=== PATIENT | female | born 1945 | race Caucasian/White ===

== ENCOUNTER 2016-12-28 18:50 | Emergency (ER) | payer MEDICARE, OTHER ==
[2016-12-28] MEDS ORDERED: NS 0.9% 1000 ML* 1,000 ML IV ONE ×3 (19:57→21:01)
[2016-12-28] MEDS ORDERED: Ondansetron INJ* 2 MG/ML VIAL IV ONE ×2 (19:57→21:00)
--- NOTE | 2016-12-28 20:41 | ED ---
Abdominal Pain/Female - HPI Summary HPI Summary: Pt presents w/ nausea, vomiting, ab pain/cramping (intermittent) and lack of BM' /small BM's since Saturday. On Saturday, had acute N/V and 2 large, soft BM's. [place] "bad" in general- suspected she had a GI bug as other family members have had this over the past few weeks/month. Not sure if she had a fever. Ate chicken noodle soup today at noon w/o difficulty. H/o bowel obstruction with sigmoid resection. She then had a hernia w/ repair in Oct 2015. Digestion has been good since (BM's and no GERD/indigestion) until this past Saturday as described above. She reports she stays ahead of constipation by taking MOM which she took last night after 3 days of no BM. This morning and throoughout the day has had a couple of "mucousy BM's w/ small stool flecks". Also notes what appeared to be blood specs in latter BM attempts. - History of Current Complaint Chief Complaint: EDAbdPain Stated Complaint: ABD PAIN/VOMITING Time Seen by Provider: 12/28/16 19:34 Hx Obtained From: Patient, Family/Snack Stewardess - daughter Pain Intensity: 10 Allergies/Adverse Reactions: Allergies Allergy/AdvReac Type Severity Reaction Status Date / Time No Known Allergies Allergy Verified 12/28/16 18:55 PMH/Surg Hx/FS Hx/Imm Hx Previously Healthy: Yes Endocrine/Hematology History: Reports: Hx Thyroid Disease - PER" [place] THYROID Denies: Hx Diabetes Cardiovascular History: Denies: Hx Congestive Heart Failure, Hx Hypertension - ? Respiratory History: Reports: Other Respiratory Problems/Disorders - HX OF SOB GI History: Reports: Hx Diverticulosis, Other GI Disorders - CONSTIPATION, stricture corrected w/ COLECTOMY History: Reports: Other Problems/Disorders - UTI Musculoskeletal History: Reports: Hx Arthritis Sensory History: Reports: Hx Contacts or Glasses, Hx Hearing Aid, Hx Hearing Problem Denies: Hx Cataracts Opthamlomology History: Reports: Hx Contacts or Glasses Denies: Hx Cataracts Neurological History: Reports: Hx Headaches - Surgical History Surgery Procedure, Year, and Place: sigmoid colon . tubal ligation Infectious Disease History: No Infectious Disease History: Denies: Traveled Outside the [place] in Last 30 Days - Family History Known Family History: Positive: None - Social History Occupation: Retired Lives: Alone Alcohol Use: None Substance Use Type: Reports: None Smoking Status (MU): Never Smoked Tobacco Review of Systems Negative: Fever, Chills Negative: Sore Throat, Ear Ache, Nasal Discharge Negative: Palpitations, Chest Pain Negative: Shortness Of Breath, Cough Gastrointestinal: Other - see HPI Positive: incontinence - has had this since a "bad UTI a few years ago". Negative: burning, discharge, frequency, flank pain, urgency Negative: Bruising Neurological: Negative Positive: Anxious All Other Systems Reviewed And Are Negative: Yes Physical Exam Triage Information Reviewed: Yes Vital Signs On Initial Exam: Initial Vitals Temp Pulse Resp BP Pulse Ox 98.8 F 64 18 167/65 99 12/28/16 18:52 12/28/16 18:52 12/28/16 18:52 12/28/16 18:52 12/28/16 18:52 Vital Signs Reviewed: Yes Appearance: Positive: Ill-Appearing, Pain Distress - holding lower ab at times, leaning forward along side of bed, dry heaving at times, Obese Skin: Positive: Warm, Dry Head/Face: Positive: Normal Head/Face Inspection Eyes: Positive: Normal, EOMI, Conjunctiva Clear - anicteric sclera ENT: Positive: Pharynx normal - mucosa moist Neck: Positive: Supple, Nontender Respiratory/Lung Sounds: Positive: Clear to Auscultation, Breath Sounds Present. Negative: Rales, Rhonchi, Wheezes Cardiovascular: Positive: Normal, RRR, Pulses are Symmetrical in both Upper and Lower Extremities, S1, S2. Negative: Murmur, Rub, Leg Edema Left, Leg Edema Right Abdomen Description: Positive: Soft - upper ab, Distended - along lower ab - tympany w/ percussion. Negative: CVA Tenderness (R), CVA Tenderness (L) Bowel Sounds: Positive: Present Pelvic Exam: Positive: other - deferred Musculoskeletal: Positive: Normal, Strength/ROM Intact Neurological: Positive: Normal, Sensory/Motor Intact, Alert, Oriented to Person Place, Time Psychiatric: Positive: Anxious Diagnostics - Vital Signs Vital Signs Temp Pulse Resp BP Pulse Ox 12/28/16 18:52 98.8 F 64 18 167/65 99 - Laboratory Result Diagrams: 12/28/16 21:00 12/28/16 21:00 Lab Statement: Any lab studies that have been ordered have been reviewed, and results considered in the medical decision making process. Re-Evaluation - Re-Evaluation First Eval Change: Improved - s/p IVF, zofran - reports she's belched a few times and this has helped Abdominal Pain Fem Course/Dx - Course Course Of Treatment: Pt present w/ N/V and limited BM's. W/u for obstruction neg. Pt found relief of cramping ab pain s/p zofran and IVF. Agrees to try mag citrate and soapy enema at home. If no relief or sx worsen (ie. fever, hard ab, vomiting, hematochezia, etc), return to ED for CT. - Diagnoses Provider Diagnoses: Constipation - Provider Notifications Discussed Care Of Patient With: Dr. Goldman Discharge - Discharge Plan Condition: Stable Disposition: HOME Prescriptions: Ondansetron [Zofran 4 MG Odt] 4 mg PO Q8HR PRN #3 tab PRN Reason: Nausea Patient Education Materials: Constipation (ED) Referrals: Genie Castle MD [Primary Care Provider] - Additional Instructions: You were provided with magnesium citrate here in the ED You may try a soapy enema at home You may also take warm bathes to relax Stay hydrated with gatorade and broth as well as water *If you are unable to move your bowels and/or you develop fever, chills, vomiting, bloody diarrhea, return to ED
[2016-12-28 21:06] LABS: Hematocrit 41 % (35-47); Hemoglobin 13.8 g/dl (12.0-16.0); Mean Corpuscular HGB Conc 33 g/dl (31-36); Mean Corpuscular Hemoglobin 31 pg (27-31); Mean Corpuscular Volume 91 fL (80-97); Mean Platelet Volume 7 um3 (7.4-10.4); Red Blood Count 4.53 10^6/ul (4.0-5.4); Red Cell Distribution Width 13 % (10.5-15)
[2016-12-28 21:26] LABS: Albumin 4.5 g/dL (3.2-5.2); C Reactive Protein 10.66 mg/L (< 5.00); Calcium 9.8 mg/dL (8.6-10.3); EGFR African American 91.2 (>60); EGFR Non-African American 70.9 (>60); Globulin 3.1 g/dL (2-4); Magnesium 2.4 mg/dL (1.9-2.7); Potassium 4.2 mmol/L (3.5-5.0); Total Bilirubin 0.4 mg/dL (0.2-1.0); Total Protein 7.6 g/dL (6.4-8.9)
--- NOTE | 2016-12-28 22:50 | RAD ---
Indication: Nausea, vomiting, abdominal pain. Lack of bowel movement. History of bowel obstruction. Comparison: October 15, 2015 CT. Technique: Supine and upright abdomen radiographs. Report: Negative for free air beneath the diaphragm. Moderately large volume of stool in the colon specifically at the cecum and ascending colon. No visualized rectal distention with stool. Suggestion of a bowel anastomosis at the RIGHT para midline pelvis. No dilated small bowel loops evident. No suspicious calcifications or mass effect. Unremarkable soft tissue contours accounting for body habitus. IMPRESSION: Moderately large volume of stool in the colon. No evidence for bowel obstruction.
[2016-12-28] MEDS ORDERED: Magnesium CITRATE* 300 ML BTL PO ONE (22:51)
[2016-12-28 23:30] VITALS: BP 143/64
== END 2016-12-28 23:29 | disposition home or self-care (01) ==
LOC: ED 18:50
DX: K59.00 Constipation, unspecified (principal); R11.2 Nausea with vomiting, unspecified; F41.9 Anxiety disorder, unspecified
CPT/HCPCS: 36415; 74020; 80053; 82150; 83605; 83690; 83735; 85025; 86140; 96374; 99283; A9270-GY; J2405

== ENCOUNTER 2018-01-15 14:46 | Emergency (ER) | payer MEDICARE ==
[2018-01-15 15:07] VITALS: BP 159/82
--- NOTE | 2018-01-15 15:29 | UC ---
Respiratory Complaint HPI - HPI Summary HPI Summary: 72 yo WF h/o URI, flu sinus infection since october of this year c/o recurrent frontal sinus SNYDER, and psin associated with copious post nasal drip on and off x 3-4 months. Denies f/c/pleuritic CP or SOB - History of Current Complaint Chief Complaint: UCGeneralIllness Stated Complaint: CHEST CONGESTION, AND COUGH Time Seen by Provider: 01/15/18 15:05 Hx Obtained From: Patient Hx Last Menstrual Period: NA ?: No Onset/Duration: Lasting Weeks Timing: Constant Severity Initially: Moderate Severity Currently: Moderate Pain Intensity: 8 - Allergies/Home Medications Allergies/Adverse Reactions: Allergies Allergy/AdvReac Type Severity Reaction Status Date / Time No Known Allergies Allergy Verified 01/15/18 15:07 PMH/Surg Hx/FS Hx/Imm Hx - Additional Past Medical History Additional PMH: sinusitis Previously Healthy: Yes - Surgical History Surgical History: Yes Surgery Procedure, Year, and Place: sigmoid colon . tubal ligation. knee replacement 2016. hernia and blockage 2105 - Family History Known Family History: Positive: None - Social History Alcohol Use: None Substance Use Type: None Smoking Status (MU): Never Smoked Tobacco - Immunization History Most Recent Influenza Vaccination: 2014 Most Recent Tetanus Shot: 2014 Most Recent Pneumonia Vaccination: 2014 Review of Systems Constitutional: Negative Skin: Negative Eyes: Negative ENT: Nasal Discharge, Sinus Congestion, Sinus Pain/Tenderness Respiratory: Negative Cardiovascular: Negative Gastrointestinal: Negative Genitourinary: Negative Motor: Negative Neurovascular: Negative Musculoskeletal: Negative Neurological: Negative Psychological: Negative All Other Systems Reviewed And Are Negative: Yes Physical Exam Triage Information Reviewed: Yes Appearance: Ill-Appearing Vital Signs: Initial Vital Signs Temp 36.7 C 01/15/18 15:01 Pulse 76 01/15/18 15:01 Resp 20 01/15/18 15:01 BP 159/82 01/15/18 15:01 Pulse Ox 98 01/15/18 15:01 Eye Exam: Normal ENT Exam: Normal ENT: Positive: Nasal congestion, Nasal drainage, TMs normal, Other - [place] uses hearing aids. Negative: Tonsillar swelling, Tonsillar exudate Dental Exam: Normal Neck exam: Normal Neck: Positive: No Lymphadenopathy Respiratory Exam: Normal Cardiovascular Exam: Normal Abdominal Exam: Normal Musculoskeletal Exam: Normal Neurological Exam: Normal Psychological Exam: Normal Skin Exam: Normal UC Diagnostic Evaluation - Laboratory O2 Sat by Pulse Oximetry: 98 Respiratory Course/Dx - Course Course Of Treatment: rapid flu neg - Differential Dx/Diagnosis Provider Diagnoses: Sinusitis Discharge - Sign-Out/Discharge Documenting (check all that apply): Discharge - Discharge Plan Condition: Stable Disposition: HOME Prescriptions: Amoxicillin/Clavulanate TAB* [Augmentin TAB 500 mg*] 500 mg PO BID 7 Days #14 tab Patient Education Materials: Sinusitis (ED) Referrals: Genie Castle MD [Primary Care Provider] - - Billing Disposition and Condition Condition: STABLE Disposition: HOME
== END 2018-01-15 16:19 | disposition home or self-care (01) ==
LOC: UCEAST 14:46
DX: J32.9 Chronic sinusitis, unspecified (principal); Z96.659 Presence of unspecified artificial knee joint
CPT/HCPCS: 87502; 99212; G0463

== ENCOUNTER 2018-10-31 09:41 | Emergency (ER) | payer MEDICARE ==
[2018-10-31] MEDS ORDERED: Ketorolac INJ* 60 MG/2 ML VIAL IM ONE (10:37)
--- NOTE | 2018-10-31 10:37 | ED ---
Upper Extremity Pain - HPI Summary HPI Summary: A 73 y/o female presents to the ED c/o left arm/bicep pain s/p incident reaching 3/10 in severity. In the ED room, the patient has a pulse of 160/85. As per triage, "Pt states she pulled on a shopping cart and feels like she tore something in her rt upper arm. CMS intact. Denies prior injury". According to the patient, she was shopping at [facility] when she was attempting to pull the shopping carts away. She stated that in the midst of trying to pull the carts part from each other, something gave out in her left arm. She stated that it felt "like something shifted". She stated that her arm just dropped and attempted to lift it but it was painful to do so. She still went shopping and she noted that when she tried to cloth picker some cookies, it was painful. Patient denies any left shoulder pain or numbness/tingling. She may have hurt her arm in the past when she was in [place] when picking up a case of water, but cannot remember. Patient has no medications at this time, except she has been taking Tylenol. No other health problems. SHx of no ETOH or smoking. Patient wears hearing aid. - History of Current Complaint Chief Complaint: EDExtremityUpper Stated Complaint: LEFT ARM PAIN Time Seen by Provider: 10/31/18 10:21 Hx Obtained From: Patient Hx Last Menstrual Period: NA Mechanism Of Injury: Other - PULLING SHOPPING CARTS APART FROM EACH OTHER. Onset/Duration: Started Minutes Ago, Still Present Timing: Constant Severity Initially: Mild - 3/10 Severity Currently: Mild - 3/10 Pain Location: Arm - LEFT Character: Unable to Describe Aggravating Factor(s): Movement Alleviating Factor(s): Nothing Associated Signs & Symptoms: Positive: Negative - Allergies/Home Medications Allergies/Adverse Reactions: Allergies Allergy/AdvReac Type Severity Reaction Status Date / Time morphine Allergy Constipatio Verified 10/31/18 09:49 n Home Medications: Home Medications Acetaminophen [Tylenol Extra Strength] 500 mg PO Q6HR PRN 10/31/18 [History Confirmed 10/31/18] PMH/Surg Hx/FS Hx/Imm Hx Endocrine/Hematology History: Denies: Hx Diabetes, Hx Thyroid Disease Cardiovascular History: Denies: Hx Congestive Heart Failure, Hx Hypertension - ? Respiratory History: Reports: Other Respiratory Problems/Disorders - HX OF SOB Denies: Hx Asthma, Hx Chronic Obstructive Pulmonary Disease (COPD) GI History: Reports: Hx Diverticulosis, Other GI Disorders - CONSTIPATION, stricture corrected w/ COLECTOMY Denies: Hx Ulcer History: Reports: Other Problems/Disorders - UTI Musculoskeletal History: Reports: Hx Arthritis Sensory History: Reports: Hx Contacts or Glasses, Hx Hearing Aid, Hx Hearing Problem Denies: Hx Cataracts Opthamlomology History: Reports: Hx Contacts or Glasses Denies: Hx Cataracts Neurological History: Reports: Hx Headaches - Surgical History Surgery Procedure, Year, and Place: sigmoid colon . tubal ligation. knee replacement 2016. hernia and blockage 2105 Infectious Disease History: No Infectious Disease History: Denies: Hx Hepatitis, Hx Human Immunodeficiency Virus (HIV), Traveled Outside the US in Last 30 Days - Family History Known Family History: Negative: Diabetes - Social History Alcohol Use: None Substance Use Type: Reports: None Smoking Status (MU): Never Smoked Tobacco Review of Systems Negative: Fever, Chills Negative: Erythema Negative: Sore Throat Negative: Chest Pain Negative: Shortness Of Breath, Cough Negative: Abdominal Pain, Vomiting, Nausea Negative: dysuria, hematuria Positive: Other - NEGATIVE: LEFT SHOULER PAIN; POSITIVE: LEFT ARM/BICEP PAIN. Negative: Myalgia, Edema Negative: Rash Neurological: Other - NEGATIVE: DIZZINESS, TINGLING Negative: Numbness All Other Systems Reviewed And Are Negative: Yes Physical Exam - Summary Physical Exam Summary: Constitutional: Well-developed, Well-nourished, Alert. (-) Distressed Skin: Warm, Dry HENT: Normocephalic; Atraumatic Eyes: Conjunctiva normal Neck: Musculoskeletal ROM normal neck. (-) JVD, (-) Stridor, (-) Tracheal deviation Cardio: Rhythm regular, rate normal, Heart sounds normal; Intact distal pulses; The pedal pulses are 2+ and symmetric. Radial pulses are 2+ and symmetric. (-) Murmur Pulmonary/Chest wall: Effort normal. (-) Respiratory distress, (-) Wheezes, (-) Rales Abd: Soft, (-) epigastric tenderness, (-) Distension, (-) Guarding, (-) Rebound Musculoskeletal: Left bicep is enlarged and patient is unable to flex at the elbow. Tender to palpation on left bicep, left medical authorization specialist intact. Lymph: (-) Cervical adenopathy Neuro: Alert, Oriented x3 Psych: Mood and affect Normal Triage Information Reviewed: Yes Vital Signs On Initial Exam: Initial Vitals Temp Pulse Resp BP Pulse Ox 98.1 F 72 18 159/104 97 10/31/18 09:47 10/31/18 09:47 10/31/18 09:47 10/31/18 09:47 10/31/18 09:47 Vital Signs Reviewed: Yes Procedures - Splinting Left Arm Location: LEFT SIDE POSTERIAL SPLINT (28 CM) Hand-Made Type: orthoglass Pre-Proc Neuro Vasc Exam: normal - CIRCULATION, SENSATION, MOVEMENT INTACT. Post-Proc Neuro Vasc Exam: normal - CIRCULATION, SENSATION, MOVEMENT INTACT. Diagnostics - Vital Signs Vital Signs Temp Pulse Resp BP Pulse Ox 10/31/18 10:11 160/85 10/31/18 09:47 98.1 F 72 18 159/104 97 - Laboratory Lab Statement: Any lab studies that have been ordered have been reviewed, and results considered in the medical decision making process. - Radiology HUMERUS XR Radiology Interpretation Completed By: Radiologist Summary of Radiographic Findings: 1. NONDISPLACED FRACTURE OF THE RADIAL HEAD. 2. OSTEOPENIA. 3. OSTEOARTHRITIS. ED PHYSICIAN REVIEWED THIS RADIOLOGY REPORT. ELBOW XR Radiology Interpretation Completed By: Radiologist Summary of Radiographic Findings: 1. NONDISPLACED FRACTURE OF THE RADIAL HEAD. 2. OSTEOPENIA. 3. OSTEOARTHRITIS. ED PHYSICIAN REVIEWED THIS RADIOLOGY REPORT. Course/Dx - Course Course Of Treatment: A 73 y/o female presents to the ED c/o left arm/bicep pain s/p incident reaching 3/10 in severity. In the ED room, the patient has a pulse of 160/85. According to the patient, [facility] when she was attempting to pull the shopping carts away. She stated that in the midst of trying to pull the carts part from each other, something gave out in her left arm. She stated that it felt "like something shifted". She stated that her arm just dropped and attempted to lift it but it was painful to do so. Physical examination findings significant for left bicep is enlarged and patient is unable to flex at the elbow. Tender to palpation on left bicep, left medical authorization specialist intact. A Humerus XR revealed 1. Nondisplaced fracture of the radial head. 2. Osteopenia. 3. Osteoarthritis. A Elbow XR revealed 1. Nondisplaced fracture of the radial head. 2. Osteopenia. 3. Osteoarthritis. No laboratory screens were done. In the ED course, the patient received Toradol. A 28 cm Left side posterial splint with orthoglass was placed with circulation, sensation, and movement intact pre and post. Patient will be discharged home with a diagnosis of radial head fracture. Patient will be sent home with prescriptions for Magnolia and Toradol. Patient is to take medication as prescribed. Patient is to follow up with Orthopedics in 2 days. Patient is to return to ED for any new or worsening symptoms. Patient is agreeable with this plan. - Diagnoses Provider Diagnoses: Radial head fracture Discharge - Sign-Out/Discharge Documenting (check all that apply): Patient Departure - DISCHARGE - Discharge Plan Condition: Stable Disposition: HOME Prescriptions: HYDROcodone/ACETAMIN 5-325 MG* [Magnolia 5-325 TAB*] 1 tab PO BEDTIME PRN #5 tab MDD 1 PRN Reason: Pain - Severe Ketorolac TAB * [Toradol TAB *] 10 mg PO Q6H PRN #20 tab PRN Reason: Pain - Moderate To Severe Patient Education Materials: Elbow Fracture (ED) Referrals: Genie Castle MD [Primary Care Provider] - Bev Macias MD [Medical Doctor] - 2 Days Additional Instructions: FOLLOW UP WITH ORTHOPEDICS IN 2 DAYS. TAKE NORCO AND TORADOL PRESCRIPTIONS PRESCRIBED. RETURN TO THE ED FOR ANY NEW OR WORSENING SYMPTOMS. - Attestation Statements Document Initiated by Scribe: Yes Documenting Scribe: Florencio Singh Provider For Whom Nick is Documenting (Include Credential): Jairo Torres MD Scribe Attestation: Florencio Luna, scribed for Jairo Torres MD on 10/31/18 at 1247. Status of Scribe Document: Ready
[2018-10-31 13:14] VITALS: BP 154/75
== END 2018-10-31 13:13 | disposition home or self-care (01) ==
LOC: ED 09:41
DX: S52.122A Displaced fracture of head of left radius, initial encounter for closed fracture (principal); Z88.5 Allergy status to narcotic agent; X50.9XXA Other and unspecified overexertion or strenuous movements or postures, initial encounter; Y93.89 Activity, other specified; Y92.512 Supermarket, store or market as the place of occurrence of the external cause
CPT/HCPCS: 29125; 96372; 99282; J1885

== ENCOUNTER → 2019-05-02 10:19 | Emergency (ER) | payer MEDICARE ==
[~2019-05-02 10:19] MED LIST: Fluorescein Sodium TOPICAL* 1 MG TEST STRIP OPHTHALMIC ONE; Tetracaine 0.5% OPTH.SOL 4 ML* 1 DROP BTL BOTH EYES SCH
--- NOTE | 2019-05-02 10:35 | ED ---
Throat Pain/Nasal Congestion - HPI Summary HPI Summary: This patient is a 74 year old F presenting to ED with a chief complaint of R eye injury since last night. Patient was applying face lotion and her hand slipped. Her pinky nail caught under the eyelid. Today the patient reports right upper eyelid, itching, pain, swelling, and erythema. Patient denies visual problems and fever. She does not wear contacts. The patient rates the pain 3/10 in severity. Symptoms aggravated by touching her eyelid. Symptoms alleviated by nothing. - History of Current Complaint Chief Complaint: EDEyeProblem Time Seen by Provider: 05/02/19 10:26 Hx Obtained From: Patient Onset/Duration: Sudden Onset - After scratching eye, Lasting Days - Since last night, Still Present Severity: Mild - Allergies/Home Medications Allergies/Adverse Reactions: Allergies Allergy/AdvReac Type Severity Reaction Status Date / Time morphine Allergy Constipatio Verified 05/02/19 10:23 n Home Medications: Home Medications Acetaminophen [Tylenol Extra Strength] 500 mg PO Q8H PRN 05/02/19 [History Confirmed 05/02/19] Aspirin [Simon Aspirin EC Low Dose 81 MG] 81 mg PO DAILY 05/02/19 [History Confirmed 05/02/19] PMH/Surg Hx/FS Hx/Imm Hx Endocrine/Hematology History: Denies: Hx Diabetes, Hx Thyroid Disease Cardiovascular History: Denies: Hx Congestive Heart Failure, Hx Hypertension - ?, Hx Pacemaker/ICD Respiratory History: Reports: Other Respiratory Problems/Disorders - HX OF SOB Denies: Hx Asthma, Hx Chronic Obstructive Pulmonary Disease (COPD) GI History: Reports: Hx Diverticulosis, Other GI Disorders - CONSTIPATION, stricture corrected w/ COLECTOMY Denies: Hx Ulcer History: Reports: Other Problems/Disorders - UTI Musculoskeletal History: Reports: Hx Arthritis Sensory History: Reports: Hx Contacts or Glasses, Hx Hearing Aid - PLEASE REMOVE , Hx Hearing Problem Denies: Hx Cataracts Opthamlomology History: Reports: Hx Contacts or Glasses Denies: Hx Cataracts Neurological History: Reports: Hx Headaches Psychiatric History: Denies: Hx Panic Disorder - Surgical History Surgery Procedure, Year, and Place: sigmoid colon removed 1998. tubal ligation 1973. right knee replacement 2016. hernia and blockage 2016 Infectious Disease History: No Infectious Disease History: Denies: Hx Hepatitis, Hx Human Immunodeficiency Virus (HIV), Traveled Outside the US in Last 30 Days - Family History Known Family History: Positive: Cardiac Disease - [place], Other - Brain cancer Negative: Diabetes - Social History Alcohol Use: None Hx Substance Use: No Substance Use Type: Reports: None Hx Tobacco Use: No Smoking Status (MU): Never Smoked Tobacco Review of Systems Negative: Fever Eyes: Other - Right upper eyelid itching, pain, swelling, and redness All Other Systems Reviewed And Are Negative: Yes Physical Exam - Summary Physical Exam Summary: General: Well appearing, no distress HEENT: PERRL. mild erythema and edema of the right upper eyelid, with hordeolum. Fluorescein exam w/o corneal abrasion. EOMI intact w/o pain. Cardiovascular: Skin is well perfused Pulmonary: No respiratory distress, no tachypnea Abdomen: Non-distended Skin: Warm, pink, dry Psych: Normal affect Neuro: A&Ox3 Triage Information Reviewed: Yes Vital Signs On Initial Exam: Initial Vitals Temp Pulse Resp BP Pulse Ox 97.3 F 80 19 165/87 97 05/02/19 10:20 05/02/19 10:20 05/02/19 10:20 05/02/19 10:20 05/02/19 10:20 Vital Signs Reviewed: Yes Diagnostics - Vital Signs Vital Signs Temp Pulse Resp BP Pulse Ox 05/02/19 10:20 97.3 F 80 19 165/87 97 - Laboratory Lab Statement: Any lab studies that have been ordered have been reviewed, and results considered in the medical decision making process. EENT Course/Dx - Course Course Of Treatment: 74-year-old female with a right eyelid pain for several days. - Exam with a sty of the right eyelid. Otherwise ophthalmologic exam unremarkable. No pain with extraocular movements or evidence of eye injury. Plan for warm compresses and follow up for worsening symptoms - Diagnoses Provider Diagnoses: Stye Discharge - Sign-Out/Discharge Documenting (check all that apply): Patient Departure - Discharge Patient Received Moderate/Deep Sedation with Procedure: No - Discharge Plan Condition: Stable Disposition: HOME Patient Education Materials: [place] (ED) Referrals: Genie Castle MD [Primary Care Provider] - 3 Days Additional Instructions: You were seen in the emergency department for left eyelid pain and swelling Exam is consistent with a stye. Please apply warm compresses to the area. Return for worsening pain, fevers, visual problems, or if you are concerned Please follow up with your primary care doctor in next 2-3 days and return to emergency department for worsening or concerning symptoms. - Billing Disposition and Condition Condition: STABLE Disposition: Home - Attestation Statements Document Initiated by Nick: Yes Documenting Scribe: Rob Maier Provider For Whom Nick is Documenting (Include Credential): Hannah Adames MD Scribe Attestation: I, Rob Maier, scribed for Hannah Adames MD on 05/02/19 at 1042. Scribe Documentation Reviewed: Yes Provider Attestation: The documentation as recorded by the Rob rivera accurately reflects the service I personally performed and the decisions made by me, Hannah Adames MD Status of Scribe Document: Viewed
[2019-05-02 10:47] VITALS: BP 135/76
== END | disposition home or self-care (01) ==
LOC: ED 10:19
DX: H00.011 Hordeolum externum right upper eyelid (principal); Z88.5 Allergy status to narcotic agent; Z79.82 Long term (current) use of aspirin
CPT/HCPCS: 99282; A9270-GY